=== PATIENT | male | born 1945 | race Caucasian/White ===

== ENCOUNTER 2017-04-16 07:13 | Observation (INO) | payer MEDICARE, OTHER ==
[2017-04-16] VITALS (12 sets, daily range): BP systolic 127–147; BP diastolic 70–84
[~2017-04-16] VITALS: Ht 188 cm; Wt 123.8 kg
[~2017-04-16 07:13] MED LIST changes: +HYDROmorphone 2 MG/ML VIAL IV PRN; +IV RINGERS,LACTATED 1000ML 1,000 ML IV SCH; +LIDOCAINE 1% 1 ML SYRINGE. ID PRN; +MORPHINE SULFATE 2 MG/ML DISP.SYRIN. IV PRN; +ONDANSETRON PF 4 MG/2 ML VIAL. IV PRN; +PROCHLORPERAZINE 10 MG/2 ML VIAL. IV PRN; +fentaNYL PF VIAL 100 MCG/2 ML VIAL IV PRN
[2017-04-16 08:25] LABS: BILIRUBIN,URINE NEGATIVE (NEG); GLUCOSE,URINE NEGATIVE (NEG); NITRITE,URINE NEGATIVE (NEG); PH,URINE 5.5; PROTEIN,URINE NEGATIVE (NEG-TRACE); UROBILINOGEN,URINE 0.2 mg/dL (0.2 mg/dL)
[2017-04-16 08:30] LABS: BASO % 1 % (0-3); EOS % 1 % (0-3); HEMATOCRIT 39.3 % (39.0-53.0); HEMOGLOBIN 13.6 g/dL (13.0-17.5); LYMPH # 1.7 x10^3/uL (1.0-4.8); LYMPH % 30 % (24-48); MEAN CORPUSCULAR HEMOGLOBIN 32 pg (25-35); MEAN CORPUSCULAR HGB CONC 35 g/dL (31-37); MEAN CORPUSCULAR VOLUME 92 fL (79-100); MONO % 10 % (0-9); NEUT % 58 % (31-73); PLATELET COUNT 167 x10^3/uL (140-400); RED BLOOD COUNT 4.28 x10^6/uL (4.30-5.70); RED CELL DISTRIBUTION WIDTH 13.3 % (11.5-14.5); WHITE BLOOD COUNT 5.8 x10^3/uL (4.0-11.0)
[2017-04-16 08:31] LABS: BACTERIA,URINE FEW /HPF (0-FEW); SQUAMOUS EPITHELIAL CELL,UR OCC /LPF
[2017-04-16 08:43] LABS: CALCIUM 8.9 mg/dL (8.5-10.1); CREATININE 1.3 mg/dL (0.7-1.3); GFR 54.4; POTASSIUM 3.6 mmol/L (3.5-5.1)
[2017-04-16] MEDS ORDERED: PROPOFOL 20 ML IV ONE (08:51)
[2017-04-16] MEDS ORDERED: fentaNYL PF VIAL 100 MCG/2 ML VIAL ONE (08:51)
[2017-04-16] MEDS ORDERED: LIDOCAINE 1% PF 5 ML VIAL. ONE (08:51)
[2017-04-16 09:09] LABS: INR 1.2 (0.8-1.1)
[2017-04-16] MEDS ORDERED: ONDANSETRON PF 4 MG/2 ML VIAL. ONE (09:46)
[2017-04-16] MEDS ORDERED: DEXAMETHASONE SOD PHOS 20 MG/5 ML VIAL. ONE (09:46)
[2017-04-16] MEDS ORDERED: SEVOFLURANE > 120 MINUTES. IH ONE (10:04)
[2017-04-16] MEDS ORDERED: SEVOFLURANE 61 TO 120 MINUTES. IH ONE (10:04)
[2017-04-16] MEDS ORDERED: HYDROcodone/APAP 5/325MG 1 TAB TABLET PO PRN (10:15)
[2017-04-16] MEDS ORDERED: MORPHINE SULFATE 2 MG/ML DISP.SYRIN. IV PRN (10:15)
[2017-04-16] MEDS ORDERED: diphenhydrAMINE HCL 25 MG CAPSULE PO PRN (10:15)
[2017-04-16] MEDS ORDERED: ONDANSETRON PF 4 MG/2 ML VIAL. IV PRN ×2 (10:15)
[2017-04-16] MEDS ORDERED: MAGNESIUM HYDROXIDE 2,400 MG/30 ML ORAL.SUSP. PO PRN (10:15)
[2017-04-16] MEDS ORDERED: MAG HYDROX/ALUMINUM HYD/SIMETH 30 ML ORAL.SUSP PO PRN (10:15)
[2017-04-16] MEDS ORDERED: ACETAMINOPHEN 325 MG TABLET. PO PRN (10:15)
[2017-04-16] MEDS ORDERED: NALOXONE 0.4 MG/ML VIAL. IV PRN (10:15)
[2017-04-16] MEDS ORDERED: 0.9 % SODIUM CHLORIDE 10 ML DISP.SYRIN. IV PRN (10:15)
--- NOTE | 2017-04-16 10:26 | PDOC ---
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
[2017-04-16] MEDS ORDERED: NITROGLYCERIN SUBLINGUAL 0.4 MG BOTTLE OF 25. SL PRN (10:45)
[2017-04-16] MEDS ORDERED: FUROSEMIDE 20 MG TABLET PO PRN (10:45)
[2017-04-16] MEDS: POTASSIUM CL 20MEQ-0.45% NACL 1,000 ML IV SCH ×2 (11:30→21:30)
--- NOTE | 2017-04-16 13:11 | OP ---
DATE OF SURGERY: 04/16/2017 PREOPERATIVE DIAGNOSIS: Chronic microscopic hematuria, bladder tumor. POSTOPERATIVE DIAGNOSIS: Large bladder tumor, right lateral wall. PROCEDURE: Cystoscopy, transurethral resection of large bladder tumor, right lateral wall. SURGEON: Laura Young DO ANESTHESIA: General. ESTIMATED BLOOD LOSS: 100 mL. INDICATIONS AND JUDGMENT: This is a 71-year-old male that had a history of chronic microscopic hematuria. He underwent ultrasound studies that suggested a bladder tumor on the right lateral wall of the bladder. Therefore, he was scheduled for cystoscopy, transurethral resection of bladder tumor. The procedure was explained to the patient. He appeared to understand and was agreeable. DESCRIPTION OF PROCEDURE: The patient was preloaded with IV antibiotics. He was taken to the operating room, placed on the operating room table, given a general anesthetic and then placed in a dorsolithotomy position using Wilberto stirrups since we do not have a cystoscopy table. Rigid cystoscopy was performed. The patient has an extremely long urethra and obstructing prostate gland 25-30 grams with a large median lobe and tight suspensory ligament, so it was difficult initially to get into the bladder and the instruments were almost not long enough to get into the bladder, so made the procedure quite challenging. The bladder was carefully inspected with a 30-degree and 70-degree lens. He was found to have a large bladder tumor on the right lateral wall. No other tumors were identified. The ureteral orifices appeared to be normal bilaterally. I then introduced a well lubricated resectoscope sheath with the Savanna obturator. I was able to get this into the bladder. I then utilized an Langley resectoscope. I then began to resect the bladder tumor, it was very challenging since it was somewhat difficult to reach with his long pendulous urethra. Carefully, ____ was resected down to the bladder wall. This was a large tumor. Following the resection, I used a rollerball electrode and cauterized the base. It is also necessary to cauterize some of the prostate median lobe, which had begun to bleed a little bit. The patient had been taken off Xarelto 3 days prior. Hemostasis appeared to be satisfactory. Therefore, the instruments were removed. I decided to place a 3-way Adorno catheter 22-Nigerien into the urethra and into the bladder. A 20 mL balloon was filled, this was irrigated. Finally, I connected that to slow continuous bladder irrigation using saline. The bladder tumor fragments were sent to pathology for tissue diagnosis. The patient tolerated the procedure well and was sent to recovery room in satisfactory condition. We will keep the patient in 23-hour observation to monitor for postop bleeding. We will continue to hold his Xarelto. Hopefully, he will be able to be discharged tomorrow. LAURA YOUNG DO DR: ALICJA/florinda JOB#: [id number] / [id number]
[2017-04-16] MEDS: POTASSIUM CHLORIDE 20 MEQ TABLET.ER. PO SCH (16:42)
[2017-04-16] MEDS: SOTALOL 80 MG TABLET. PO SCH (21:00)
[2017-04-16] MEDS ORDERED: ATORVASTATIN CALCIUM 20 MG TABLET PO SCH (21:00)
[2017-04-16] MEDS: RANOLAZINE 500 MG TAB.ER.12H PO SCH (21:32)
[2017-04-17 03:25] VITALS: BP 118/65
[2017-04-17 04:47] LABS: BASO % 0 % (0-3); EOS % 0 % (0-3); HEMATOCRIT 39.2 % (39.0-53.0); HEMOGLOBIN 13.2 g/dL (13.0-17.5); LYMPH # 1.3 x10^3/uL (1.0-4.8); LYMPH % 10 % (24-48); MEAN CORPUSCULAR HEMOGLOBIN 32 pg (25-35); MEAN CORPUSCULAR HGB CONC 34 g/dL (31-37); MEAN CORPUSCULAR VOLUME 94 fL (79-100); MONO % 4 % (0-9); NEUT % 86 % (31-73); PLATELET COUNT 175 x10^3/uL (140-400); RED BLOOD COUNT 4.19 x10^6/uL (4.30-5.70); WHITE BLOOD COUNT 12.5 x10^3/uL (4.0-11.0)
[2017-04-17 05:16] LABS: CALCIUM 8.9 mg/dL (8.5-10.1); CREATININE 1.1 mg/dL (0.7-1.3); POTASSIUM 3.7 mmol/L (3.5-5.1)
[2017-04-17 07:00] VITALS: BP 127/69
[2017-04-17] MEDS ORDERED: PANTOPRAZOLE 40 MG TABLET.DR. PO SCH (07:30)
[2017-04-17] MEDS: POTASSIUM CL 20MEQ-0.45% NACL 1,000 ML IV SCH (07:31)
[2017-04-17] MEDS ORDERED: TOTAL VOLUME IRR ONE (08:00)
[2017-04-17] MEDS ORDERED: MITOMYCIN IRR ONE (08:00)
[2017-04-17] MEDS: POTASSIUM CHLORIDE 20 MEQ TABLET.ER. PO SCH ×2 (08:41→11:48)
[2017-04-17] MEDS: RANOLAZINE 500 MG TAB.ER.12H PO SCH (08:42)
[2017-04-17] MEDS: SOTALOL 80 MG TABLET. PO SCH (08:45)
[2017-04-17 08:47] LABS: PLT ESTIMATE ADEQUATE (ADEQUATE)
[2017-04-17] MEDS ORDERED: TRIAMTERENE/HCTZ 37.5/25MG TABLET. PO SCH (09:00)
[2017-04-17] MEDS ORDERED: ISOSORBIDE MONONITRATE ER 30 MG TAB.ER.24H PO SCH (09:00)
[2017-04-17] MEDS ORDERED: TAMSULOSIN 0.4 MG CAP.ER.24H. PO SCH (09:00)
[2017-04-17] MEDS ORDERED: MAGNESIUM CHLORIDE ER 64 MG TABLET.ER PO SCH ×2 (09:00)
[2017-04-17] MEDS ORDERED: CETIRIZINE HCL 10 MG TABLET. PO SCH (09:00)
--- NOTE | 2017-04-17 09:16 | PDOC ---
Provider Note Provider Note Urology: POD#1 TUR-bladder tumor Urine clear no complaints Mitomycin 40mg instilled into bladder and catheter removed, patient instructed to hold medication in bladder for 2 hours and then void Path: pending Plan: home will call next week with Path report Rx's Angela Conway Flomax Discharged in satisfactory condition Told to hold Xaralto for 3 days LAURA YOUNG DO Apr 17, 2017 09:15
--- NOTE | 2017-04-17 09:17 | DISCH ---
DISCHARGE INSTRUCTIONS Condition on Discharge Condition on Discharge: Stable Activity After Discharge Activity Instructions for Disc: Avoid exertion Diet after Discharge Diet after Discharge: Regular Contacting the after DC Call your doctor for: Concerns you may have Follow-Up Follow up with: Dr. Young will call you next week with Pathology report LAURA YOUNG DO Apr 17, 2017 09:17
[2017-04-17 11:00] VITALS: BP 116/68
--- NOTE | 2017-04-17 12:50 | DS ---
DATE OF DISCHARGE: 04/17/2017 FINAL DIAGNOSIS: Bladder cancer. OPERATIONS AND PROCEDURES: On 04/16/2017, transurethral resection of large bladder tumor. This is a summary of the patient's hospital course: A well-documented history and physical can be found in the body of the chart. HOSPITAL COURSE: Briefly, this 71-year-old male had a history of chronic microscopic hematuria. He had ultrasound studies, which revealed what appeared to be a bladder mass. Therefore, the patient was brought to the hospital and underwent cystoscopy and transurethral resection of large bladder tumor on the right lateral wall of the bladder. He tolerated the procedure well. An indwelling 3-way Adorno catheter was left in place with continuous bladder irrigation following the procedure. He was kept overnight and monitored for hematuria. The following morning, his urine was clear. Prior to removing the catheter, I instilled mitomycin 40 mg into the bladder and then the catheter was removed. The patient was instructed to hold the medication for two hours and then void. The patient was discharged later that day. He was given discharge instructions with respect to diet and activity. 1. He is given a prescription for Cipro 500 mg p.o. b.i.d. for five days. 2. He was given a prescription for Flomax one tablet p.o. b.i.d., dispensed 60 with refills. 3. He was given a prescription for Imdur 60 mg ____ tablet p.o. daily, dispensed 30. I will contact the patient next week with the pathology report and further instructions. He appeared to understand and was agreeable. The patient was discharged in satisfactory condition. LAURA YOUNG DO DR: ALICJA/florinda JOB#: [id number] / [id number]
[2017-04-17] MEDS ORDERED: RIVAROXABAN 10 MG TABLET. PO SCH (17:00)
--- NOTE | 2017-04-19 16:47 | PATHOLOGY ---
PATHOLOGY REPORT * * * * * * * * FINAL DIAGNOSIS: Bladder tumor, transurethral resection: - PAPILLARY LOW-GRADE UROTHELIAL CARCINOMA. see comment. COMMENT: The entire specimen is submitted for histologic evaluation. Microscopic sections reveal a papillary low-grade urothelial carcinoma showing extensive coagulation artifact. There is no definitive evidence of lamina propria invasion. No muscularis propria is present. The case is also examined by Dr. Whiting, who concurs with the diagnosis. REPORT ELECTRONICALLY SIGNED BY: Pa Houser M.D. DATE/TIME: 04/19/2017 16:47 * * * * * * * * GROSS PATHOLOGY: Received in formalin labeled "Rosalind Moreira, bladder tumor," are multiple, irregular, friable segments of bosch soft tissue measuring 3.5 x 2.8 x 0.5 cm in aggregate dimensions. The specimen is submitted entirely in cassettes A1 and A2. (JPM; 04/16/17) INITIAL CPT CODE(S): A; 79226 Professional services performed [place] [facility] [address] Technical services performed by [facility] at [address] [place] [address]. SPECIMEN(S) RECEIVED: A.Bladder tumor CLINICAL HISTORY: Bladder mass PATIENT: ROSALIND MOREIRA /AGE: 111/20/1945 (Age: 71) PATIENT #: [id number] ALT CASE #: SPECIMEN COLLECTION DATE: 04/16/2017 SPECIMEN RECEIVED DATE: 04/16/2017 [facility] - [address] [place] [address] - PHONE: [phone] * * * END OF REPORT * * *
== END 2017-04-17 15:30 | disposition home or self-care (01) ==
LOC: SURG 07:13 → 4 NORTH 10:47
PROVIDERS: ADMIT Urology; ATTEND Urology
DX: C67.9 Malignant neoplasm of bladder, unspecified (principal)
CPT/HCPCS: 36415; 51720; 52240; 80048; 81001; 85007; 85027; 85610; 85730; G0378; G0379; J1100; J1956; J2704; J3010; J9280; J2405

== ENCOUNTER → 2017-04-16 | Outpatient (CLI) | payer MEDICARE, OTHER ==
[~2017-04-16] MED LIST: ASCO500T2 PO; ATOR20TA PO; DILT360C PO; ESOM40CA PO; FURO20TA3 PO; ISOS30TA4 PO; LORA10TA3 PO; MAGN71.5 PO; NITR0.4T22 SL; POTA20TA82 PO; RANO500T2 PO; RIVA20TA2 PO; SOTA80TA48 PO; TAMS0.4C2 PO; TRIA1CAP3 PO
== END | disposition home or self-care (01) ==
LOC: LAB 07:22
PROVIDERS: ATTEND Nurse Practitioner
DX: R53.83 Other fatigue (principal)
CPT/HCPCS: 36415; 85651